=== PATIENT | female | born 1950 | race American Indian/Alaskan Native ===

== ENCOUNTER 2019-11-15 06:30 | Day surgery (SDC) | payer MEDICARE, OTHER ==
[~2019-11-15 06:30] MED LIST: ACETAMINOPHEN 500 MG TAB PO SCH; GABAPENTIN 300 MG CAP PO NR; LACTATED RINGERS 1,000 ML IV SCH; VANCOMYCIN 1,750 MG in SODIUM CHLORIDE 0.9% 500 ML 500 ML IV SCH; VANCOMYCIN/NS 1 GM/250 ML 1 GM/250 ML BAG IV NR; WATER FOR IRRIG STERILE 1,500 ML BOTTLE IR ONE
[2019-11-15] MEDS ORDERED: BACTERIOSTATIC SODIUM CHLORIDE 0.9% 30 ML VIAL INFILTRATI ONE (06:32)
[2019-11-15] MEDS ORDERED: LIDOCAINE (1%) 10 MG/1 ML VIAL 20 ML MDV ONE (07:19)
[2019-11-15] MEDS ORDERED: BUPIVACAINE/PF (0.25%) 2.5 MG/ML 30 ML VIAL INFILTRATI ONE (07:19)
[2019-11-15] MEDS ORDERED: FAMOTIDINE 20 MG/2 ML INJ IV NR (07:31)
--- NOTE | 2019-11-15 07:31 | Anesthesia Consultation ---
Anesthesia Consult and Med Hx Date of service: 11/15/19 - Airway Anesthetic Teeth Evaluation: Good, Partials ROM Head & Neck: Adequate Mallampati Class: Class III Intubation Access Assessment: Possibly Difficult - Pre-Operative Health Status ASA Pre-Surgery Classification: ASA3 Proposed Anesthetic Plan: General - Pulmonary Hx Smoking: Yes (QUIT 25 YRS AGO) Hx Sleep Apnea: Yes (undiagnosed) - Cardiovascular System Hx Hypertension: Yes Hx Heart Attack/AMI: No Hx Heart Murmur: Yes - Central Nervous System Hx Seizures: No Hx Back Pain: Yes (PAIN BACK-DISC S1) Hx Psychiatric Problems: No - Gastrointestinal Hx Gastroesophageal Reflux Disease: Yes - Endocrine Hx Renal Disease: Yes (overactive bladder) - Hematic Hx Anemia: Yes Hx Sickle Cell Disease: No - Other Systems Hx Alcohol Use: No Hx Substance Use: No Hx Cancer: No Hx Obesity: Yes (Morbid obesity, BMI 46.0)
--- NOTE | 2019-11-15 07:33 | Anesthesia Day of Surgery ---
Anesthesia Day of Surgery - Day of Surgery Patient Examined: Yes Patient H&P Reviewed: Yes Patient is NPO: Yes
[2019-11-15] MEDS ORDERED: HYDROmorphone 1 MG/1 ML INJ ONE (07:49)
[2019-11-15] MEDS ORDERED: LIDOCAINE MPF (2%) 20 MG/1 ML VIAL 5 ML ONE (07:50)
[2019-11-15] MEDS ORDERED: propofoL 200 MG/20 ML VIAL IV ONE (07:50)
[2019-11-15] MEDS ORDERED: MIDAZOLAM 2 MG/2 ML INJ IV NR (08:00)
[2019-11-15] MEDS ORDERED: ePHEDrine SULFATE 50 MG/1 ML INJ ONE (08:43)
[2019-11-15] MEDS ORDERED: ONDANSETRON 4 MG/2 ML INJ ONE (09:01)
[2019-11-15] MEDS ORDERED: dexAMETHasone 20 MG/5 ML VIAL ONE (09:01)
[2019-11-15] MEDS ORDERED: WATER FOR IRRIG STERILE 1,500 ML BOTTLE IR ONE (09:14)
--- NOTE | 2019-11-15 09:48 | Short Stay Summary ---
Short Stay Documentation Date of service: 11/15/19 - History H&P: obtained from office - Allergies and Medications Current Medications: Allergies lisinopril Allergy (Verified 08/26/15 08:25) Swelling Penicillins Allergy (Verified 08/26/15 08:25) Rash Sulfa (Sulfonamide Antibiotics) Allergy (Verified 08/26/15 08:25) Rash Home Medications Medication Instructions Recorded Confirmed Last Taken Type Omeprazole 20 mg PO DAILY 08/26/15 11/15/19 11/14/19 History Oxybutynin 5 mg PO DAILY 08/26/15 11/15/19 11/14/19 History Simvastatin 20 mg PO HS 08/26/15 11/15/19 11/14/19 History Cholecalciferol Vit D3 50,000 units PO DAILY 10/04/19 10/04/19 11/14/19 History Losartan Potassium 100 mg PO DAILY 10/04/19 10/04/19 11/14/19 History Victoza 2-Chip 1.8 mg SQ DAILY 10/04/19 10/04/19 11/14/19 History Zolpidem Tartrate 10 mg PO HS 10/04/19 10/04/19 11/14/19 History amLODIPine 5 mg PO DAILY 10/04/19 11/15/19 11/15/19 05:00 History oxyCODONE /ACETAMINOPHEN [Percocet 1 tab PO Q6HR PRN #15 tablet 11/15/19 Unknown Rx 5/325] Active Medications Acetaminophen (Tylenol) 1,000 mg PO PREOP GRISELDA Stop: 11/15/19 23:59 Last Admin: 11/15/19 07:00 Dose: 1,000 mg Documented by: Famotidine (Pepcid) 20 mg IV ONCE NR Stop: 11/15/19 10:00 Last Admin: 11/15/19 07:43 Dose: 20 mg Documented by: Gabapentin (Gabapentin) 300 mg PO PREOP NR Stop: 11/15/19 23:59 Last Admin: 11/15/19 07:00 Dose: 300 mg Documented by: Hydromorphone HCl (Dilaudid) 0.5 mg IV Q10MIN PRN PRN Reason: Pain , Severe (7-10) Stop: 11/15/19 20:00 Vancomycin HCl 1,750 mg/ (Sodium Chloride) 535 mls @ 333.333 mls/hr IV PREOP GRISELDA Last Admin: 11/15/19 07:43 Dose: 333.333 mls/hr Documented by: Lactated Ringer's (Lactated Ringers) 1,000 mls @ 100 mls/hr IV DIRECT GRISELDA Stop: 11/15/19 23:59 Last Admin: 11/15/19 07:15 Dose: 100 mls/hr Documented by: Midazolam HCl (Versed) 2 mg IV PREOP NR Stop: 11/15/19 23:59 Last Admin: 11/15/19 07:43 Dose: 2 mg Documented by: - Brief post op/procedure progress note Date of procedure: 11/15/19 Pre-op diagnosis: Left nipple discharge Post-op diagnosis: same Procedure: Left breast terminal duct excisional biopsy Anesthesia: GETA Findings: Left terminal duct excision Surgeon: DYLAN SEQUEIRA Estimated blood loss: minimal Pathology: list (left terminal duct) Specimen disposition: to lab Condition: stable - Disposition Condition at discharge: Good Disposition: DC-01 TO HOME OR SELFCARE Short Stay Discharge Plan Activity: other (no heavy lifting) Diet: regular Wound: keep clean and dry (wear breast binder; may shower in 48 hours; do not rub or scrub incision) Follow up with: DYLAN SEQUEIRA MD [Staff Physician] - 7 Days Prescriptions: oxyCODONE /ACETAMINOPHEN [Percocet 5/325] 1 tab PO Q6HR PRN #15 tablet PRN Reason: Pain
[2019-11-15] MEDS: HYDROmorphone 1 MG/1 ML INJ IV PRN ×2 (09:50→10:00)
--- NOTE | 2019-11-15 10:00 | Operative Report ---
Operative Report Operative Report: Date of Surgery: 11/15/2019 Preoperative diagnosis: Left spontaneous nipple discharge Postoperative diagnosis: Same Procedure: Left breast terminal duct excisional biopsy Surgeon: Citlalli Zuniga MD Register Clerk: Aric Clarek MD Anesthesia: General Findings: Left clear nipple discharge at 2:00 position with terminal duct excision performed Complications: None Drains: None EBL: Minimal Disposition: PACU in good condition Inidications for operative procedure: This is a 69-year-old -[place] lady with left spontaneous clear nipple discharge. Recent diagnostic work-up all negative to include screening and diagnostic mammogram, complete left breast ultrasound and breast MRI with no findings to account for nipple discharge. 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 Patient wished to proceed with the above procedure. Procedure in detail: The patient was taken to the operating room and was laid supine. General anesthesia was administered. The left breast was prepped and draped in the normal sterile operative fashion. Timeout was performed. Clear nipple discharge was expressed from the 2 o'clock position of the nipple upon pressure with a lacrimal probe inserted into the discharging duct. A lateral periareolar breast incision was made with a 15 blade knife with dissection taken down to the subcutaneous tissues. First began raising of medial flap dissecting tissue posterior to the nipple towards the lacrimal probe. Once the duct was idenitifed with the lacrimal probe present, the tissue surrounding the duct was appropriately dissected free and taken down posteriorly by 3 cm. The duct of concern was appropriately marked with a 3-0 Vicryl and the lacrimal probe was then removed. Dissection was then carried out posteriorly with the aid of the Bovie cautery. Specimen was appropriately marked and sent to pathology. Hemostasis was then obtained with the Bovie cautery. The breast cavity was irrigated and suctioned. The deep breast posterior breast tissues were approximated and closed using interrupted 3-0 Vicryl and the subcutaneous tissues were approximated and closed using interrupted 3-0 Vicryl. The skin was then closed using a running 4-0 Monocryl followed by Dermabond. She tolerated surgery very well and was awakened from anesthesia without any complications and transported to PACU in good condition.
[2019-11-15 11:15] VITALS: BP 130/76
--- NOTE | 2019-11-15 15:33 | Post Anesthesia Evaluation ---
- Post Anesthesia Evaluation Patient Participated: Yes Airway Patent: Yes Stable Respiratory Function: Yes Nausea/Vomiting: No Temp > 96.8F: Yes Pain Manageable: Yes Adequeate Hydration: Yes Anesthesia Complications: No
== END 2019-11-15 06:31 | disposition home or self-care (01) ==
LOC: OR 06:30
PROVIDERS: ATTEND Surgery
DX: N64.52 Nipple discharge (principal); D24.2 Benign neoplasm of left breast; R92.0 Mammographic microcalcification found on diagnostic imaging of breast; E78.00 Pure hypercholesterolemia, unspecified; I10 Essential (primary) hypertension; Z20.828 Contact with and (suspected) exposure to other viral communicable diseases; G47.30 Sleep apnea, unspecified; K21.9 Gastro-esophageal reflux disease without esophagitis; E66.9 Obesity, unspecified; Z98.890 Other specified postprocedural states; Z88.2 Allergy status to sulfonamides; Z88.0 Allergy status to penicillin; Z87.891 Personal history of nicotine dependence; Z79.899 Other long term (current) drug therapy; Z80.0 Family history of malignant neoplasm of digestive organs; Z90.710 Acquired absence of both cervix and uterus; Z86.2 Personal history of diseases of the blood and blood-forming organs and certain disorders involving the immune mechanism; Z88.8 Allergy status to other drugs, medicaments and biological substances
CPT/HCPCS: 19120; 82962; 88307; J1100; J1170; J2250; J2405; J2704; J3370; J7040; J7120; U0003